=== PATIENT | female | born 1995 ===

== ENCOUNTER 2018-10-14 08:35 | Emergency (ER) | payer MEDICAID ==
[2018-10-14 08:40] VITALS: BMI 22.1
[2018-10-14 08:41] VITALS: O2SAT 98
--- NOTE | 2018-10-14 09:13 | C.PDOC ---
History Of Present Illness 23 years old female presents to ED for complaints of left sore throat and ear pain that began 2 days ago. Denies fever, nausea, vomiting, diarrhea, or any other complaints. Time Seen by Provider: 10/14/18 08:50 Chief Complaint (Nursing): ENT Problem History Per: Patient History/Exam Limitations: no limitations Onset/Duration Of Symptoms: Hrs Current Symptoms Are (Timing): Still Present Location Of Pain: Ear(s), Throat Sick Contacts (Context): None Associated Symptoms: denies: Fever Ear Symptoms: Left: Ear Pain Recent travel outside of the [place]: No Past Medical History Reviewed: Historical Data, Nursing Documentation, Vital Signs Vital Signs: Last Vital Signs Temp 99.2 F 10/14/18 08:40 Pulse 106 H 10/14/18 08:40 Resp 17 10/14/18 08:40 BP 102/69 10/14/18 08:40 Pulse Ox 98 10/14/18 08:40 - Medical History PMH: No Chronic Diseases Family History: States: No Known Family Hx - Social History Hx Alcohol Use: No Hx Substance Use: No - Immunization History Hx Tetanus Toxoid Vaccination: No Hx Influenza Vaccination: No Hx Pneumococcal Vaccination: Yes (2014) Review Of Systems Constitutional: Negative for: Fever, Chills ENT: Positive for: Ear Pain (Left ), Throat Pain Gastrointestinal: Negative for: Nausea, Vomiting, Abdominal Pain, Diarrhea Skin: Negative for: Rash Neurological: Negative for: Weakness, Numbness Physical Exam - Physical Exam Appears: Non-toxic, No Acute Distress Skin: Normal Color, Warm, Dry, No Rash Head: Atraumatic, Normacephalic Eye(s): bilateral: Normal Inspection, PERRL, EOMI Nose: Normal, No Discharge Oral Mucosa: Moist Throat: Exudate (Pharyngitis on left side ), No Drooling, No Mass, Other (Minimal tonsillar swelling ) Neck: Normal ROM, Supple Chest: Symmetrical, No Tenderness Cardiovascular: Rhythm Regular, No Murmur Respiratory: Normal Breath Sounds, No Rales, No Rhonchi, No Wheezing, Other (NARD) Gastrointestinal/Abdominal: Soft, No Tenderness Extremity: Normal ROM Extremity: Bilateral: Atraumatic, Normal Color And Temperature, Normal ROM Pulses: Left Radial: Normal, Right Radial: Normal Neurological/Psych: Oriented x3, Normal Speech Gait: Steady ED Course And Treatment O2 Sat by Pulse Oximetry: 98 (RA) Pulse Ox Interpretation: Normal Disposition Counseled Patient/Family Regarding: Diagnosis, Need For Followup, Rx Given - Disposition Referrals: [facility] [Outside] [facility] [Outside] Disposition: HOME/ ROUTINE Disposition Time: 09:10 Condition: IMPROVED Prescriptions: Amoxicillin 875 mg PO BID #20 tab Dexamethasone [Decadron] 12 mg PO ONCE #2 tablet Ibuprofen [Motrin] 600 mg PO Q6 #30 tab Instructions: Sore Throat, Adult (DC) Forms: [employer] (Hungarian) Print Language: KISWAHILI - Clinical Impression Clinical Impression: Pharyngitis - Scribe Statement The provider has reviewed the documentation as recorded by the Scribmacrina Grigsby All medical record entries made by the Harpalibmacrina were at my direction and personally dictated by me. I have reviewed the chart and agree that the record accurately reflects my personal performance of the history, physical exam, medical decision making, and the department course for this patient. I have also personally directed, reviewed, and agree with the discharge instructions and disposition.
[2018-10-14 09:42] VITALS: BP 107/70; PULSE 102; RESP 16; TEMP 99
== END 2018-10-14 09:41 | disposition home or self-care (01) ==
LOC: C.ER 08:35
DX: J02.9 Acute pharyngitis, unspecified (principal)

== ENCOUNTER 2019-01-14 10:11 | Emergency (ER) | payer MEDICAID ==
[2019-01-14 10:12] VITALS: BMI 22.1
[2019-01-14 10:20] VITALS: BP 101/66; PULSE 100; RESP 18; TEMP 98.8; O2SAT 99
--- NOTE | 2019-01-14 11:49 | C.PDOC ---
History Of Present Illness 23 y/o female presents to the ED complaining of sore throat for 4 days. Associated with nasal congestion, rhinorrhea, and cough. States she has been taking OTC Tylenol cold and flu twice daily with minimal relief. Denies any known sick contacts. Patient did not receive flu shot this season. Otherwise she denies any fevers, chills, dizziness, headache, SOB, chest pain, nausea, vomiting, diarrhea, or abd pain. Time Seen by Provider: 01/14/19 11:02 Chief Complaint (Nursing): Cough, Cold, Congestion Past Medical History Vital Signs: Last Vital Signs Temp 98.8 F 01/14/19 10:17 Pulse 100 H 01/14/19 10:17 Resp 18 01/14/19 10:17 BP 101/66 01/14/19 10:17 Pulse Ox 99 01/14/19 10:17 - Social History Hx Alcohol Use: No Hx Substance Use: No - Immunization History Hx Tetanus Toxoid Vaccination: No Hx Influenza Vaccination: No Hx Pneumococcal Vaccination: Yes (2014) ED Course And Treatment O2 Sat by Pulse Oximetry: 99 Disposition - Disposition
--- NOTE | 2019-01-14 11:51 | C.PDOC ---
History Of Present Illness 23 y/o female presents to the ED complaining of sore throat for 4 days. Associated with nasal congestion, rhinorrhea, and cough. States she has been taking OTC Tylenol cold and flu twice daily with minimal relief. Denies any known sick contacts. Patient did not receive flu shot this season. Otherwise she denies any fevers, chills, dizziness, headache, SOB, chest pain, nausea, vomiting, diarrhea, or abdominal pain. Time Seen by Provider: 01/14/19 11:02 Chief Complaint (Nursing): Cough, Cold, Congestion History Per: Patient History/Exam Limitations: no limitations Onset/Duration Of Symptoms: Days (x 4) Current Symptoms Are (Timing): Still Present Location Of Pain: Throat Associated Symptoms: Nasal Congestion Past Medical History Reviewed: Historical Data, Nursing Documentation, Vital Signs Vital Signs: Last Vital Signs Temp 98.8 F 01/14/19 10:17 Pulse 100 H 01/14/19 10:17 Resp 18 01/14/19 10:17 BP 101/66 01/14/19 10:17 Pulse Ox 99 01/14/19 10:17 Surgical History: (x 2) Family History: States: No Known Family Hx - Social History Hx Tobacco Use: No Hx Alcohol Use: No Hx Substance Use: No - Immunization History Hx Tetanus Toxoid Vaccination: No Hx Influenza Vaccination: No Hx Pneumococcal Vaccination: Yes (2014) Review Of Systems Constitutional: Negative for: Fever, Chills ENT: Positive for: Nose Discharge, Nose Congestion, Throat Pain Cardiovascular: Negative for: Chest Pain Respiratory: Positive for: Cough. Negative for: Shortness of Breath Gastrointestinal: Negative for: Nausea, Vomiting, Abdominal Pain, Diarrhea Skin: Negative for: Rash Neurological: Negative for: Headache, Dizziness Physical Exam - Physical Exam Appears: Non-toxic, No Acute Distress Skin: Normal Color, Warm, Dry Head: Atraumatic, Normacephalic Eye(s): bilateral: Normal Inspection, PERRL, EOMI Ear(s): Bilateral: Normal Oral Mucosa: Moist Throat: Normal (no tonsillar hypertrophy), No Erythema, No Exudate Neck: Normal ROM, Supple Chest: Symmetrical Cardiovascular: Rhythm Regular Respiratory: Normal Breath Sounds, No Accessory Muscle Use, No Rhonchi, No Wheezing Extremity: Bilateral: Atraumatic, Normal ROM Neurological/Psych: Oriented x3 ED Course And Treatment O2 Sat by Pulse Oximetry: 99 (on RA) Pulse Ox Interpretation: Normal Medical Decision Making Medical Decision Making: Impression: viral URI Plan: - 60 mg PO sudafed - 100 mg PO tessalon perles Patient will be discharged home with rx for cough mediation and flonase. Patient verbalizes understanding and is in agreement with plan. Patient is stab le for discharge. Disposition Counseled Patient/Family Regarding: Diagnosis, Need For Followup, Rx Given - Disposition Referrals: [facility] [Outside] Disposition: HOME/ ROUTINE Disposition Time: 11:49 Condition: STABLE Additional Instructions: Start Flonase twice daily Continue Tessalon Perles for Cough Continue Tylenol Cold and Flu salt water gargles 4 times a day for sore throat Rest and Hydration Follow up in clinic 1-2 days Return to ED if symptoms worsen Prescriptions: Benzonatate [Tessalon Perles] 100 mg PO TID #30 sgl Fluticasone Nasal [Flonase] 1 spr NS BID #1 bottle Instructions: Viral Upper Respiratory Infection, Adult (DC) Forms: [employer] (Welsh) Print Language: SWISS - Clinical Impression Clinical Impression: Viral URI with cough - 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 - Scribe Statement The provider has reviewed the documentation as recorded by the Scribmacrina Fenton All medical record entries made by the Scribe were at my direction and personally dictated by me. I have reviewed the chart and agree that the record accurately reflects my personal performance of the history, physical exam, medical decision making, and the department course for this patient. I have also personally directed, reviewed, and agree with the discharge instructions and disposition.
== END 2019-01-14 11:58 | disposition home or self-care (01) ==
LOC: C.ER 10:11
DX: J06.9 Acute upper respiratory infection, unspecified (principal)

== ENCOUNTER 2019-03-14 19:52 | Emergency (ER) | payer MEDICAID | END 2019-03-14 21:47 | disposition home or self-care (01) | LOC: C.ER 19:52 ==